=== PATIENT | female | born 1995 | race Caucasian/White ===

== ENCOUNTER 2018-03-15 15:39 | Emergency (ER) | payer BC ==
[~2018-03-15] VITALS: Ht 160 cm; Wt 54.4 kg
[2018-03-15 15:40] VITALS: BP_SYST 114
[2018-03-15] MEDS ORDERED: IBUPROFEN 800 MG TABLET PO ONE (16:00)
[2018-03-15 16:52] VITALS: BP_SYST 121
== END 2018-03-15 16:52 | disposition home or self-care (01) ==
LOC: SED 15:39
DX: S92.352A Displaced fracture of fifth metatarsal bone, left foot, initial encounter for closed fracture (principal); R03.0 Elevated blood-pressure reading, without diagnosis of hypertension; X50.9XXA Other and unspecified overexertion or strenuous movements or postures, initial encounter; Y93.89 Activity, other specified; Y92.89 Other specified places as the place of occurrence of the external cause; Y99.8 Other external cause status
CPT/HCPCS: 99284

== ENCOUNTER 2019-03-10 14:42 | Emergency (ER) | payer BC ==
[~2019-03-10] VITALS: Ht 152.4 cm; Wt 58.1 kg
[2019-03-10 14:49] VITALS: BP_SYST 125
--- NOTE | 2019-03-10 14:50 | NUR ---
Patient to ER bed 5 to gown for evaluation. Side rails up.
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
--- NOTE | 2019-03-10 15:15 | NUR ---
OSCAR King examining patient.
[2019-03-10] MEDS ORDERED: KETAMINE 30 MG/3 ML SYRINGE IVP ONE (16:00)
[2019-03-10] MEDS ORDERED: MIDAZOLAM HCL 5 MG/5 ML VIAL IVP ONE (16:00)
[2019-03-10] MEDS ORDERED: KETOROLAC TROMETHAMINE 30 MG VIAL IVP ONE (16:15)
--- NOTE | 2019-03-10 16:20 | NUR ---
Patient movd to Bed 1. Moderate sedation consent obtained and prep for procedure. Partner of patient Shirin Robertson at bedside.
--- NOTE | 2019-03-10 16:24 | NUR ---
Moderate sedation & right arm open reduction documentation on moderate sedation flow sheet.
[2019-03-10] MEDS ORDERED: SYN50 PO (17:46)
[2019-03-10] MEDS ORDERED: FLEETMO RC (17:46)
[2019-03-10] MEDS ORDERED: VITD2000 PO (17:46)
[2019-03-10] MEDS ORDERED: LISI-209 PO (17:46)
[2019-03-10] MEDS ORDERED: ACET-2165 PO ×2 (17:46)
[2019-03-10] MEDS ORDERED: DONE10TA44 PO (17:46)
[2019-03-10] MEDS ORDERED: CLOP75TA32 PO (17:46)
[2019-03-10] MEDS ORDERED: GABA-531 PO (17:46)
[2019-03-10] MEDS ORDERED: MEMA5TAB PO (17:46)
[2019-03-10] MEDS ORDERED: GLU500 PO (17:46)
[2019-03-10] MEDS ORDERED: CILO100T PO (17:46)
[2019-03-10] MEDS ORDERED: ATOR40TA68 PO (17:46)
[2019-03-10] MEDS ORDERED: SSNOVOLOG SUBCUT (17:46)
[2019-03-10] MEDS ORDERED: DOCU-144 PO (17:46)
[2019-03-10] MEDS ORDERED: FER300L PO (17:46)
[2019-03-10] MEDS ORDERED: MULT-1100 PO (17:46)
[2019-03-10] MEDS ORDERED: INSU100V11 SQ (17:46)
[2019-03-10] MEDS ORDERED: ACET-2634 PO (17:46)
[2019-03-10] MEDS ORDERED: BISA10SU61 RC (17:46)
[2019-03-10] MEDS ORDERED: MOM PO (17:46)
[2019-03-10] MEDS ORDERED: HYDROcodone/ACETAMIN 5-325 MG TAB (NORCO/ VICODIN) PO ONE (18:45)
[2019-03-10] MEDS ORDERED: BACITRACIN 1 GM OINT TP ONE (18:45)
[2019-03-10 18:50] VITALS: BP_SYST 140
--- NOTE | 2019-03-10 18:50 | NUR ---
Patient given written and verbal discharge instructions and verbalizes understanding. ER MD discussed with patient the results and treatment provided. Patient in stable condition. ID arm band removed. IV catheter removed intact and dressing applied, no active bleeding.left arm blister wrapped with Yifan wrap. Rx of Hiram & Motrin given. Patient educated on pain management and to follow up with PMD. Pain Scale 7/10 tolerable for patient. Opportunity for questions provided and answered. Medication side effect fact sheet provided.
== END 2019-03-10 18:50 | disposition home or self-care (01) ==
LOC: SED 14:42
DX: S52.501A Unspecified fracture of the lower end of right radius, initial encounter for closed fracture (principal); S50.12XA Contusion of left forearm, initial encounter; R03.0 Elevated blood-pressure reading, without diagnosis of hypertension; V49.40XA Driver injured in collision with unspecified motor vehicles in traffic accident, initial encounter; Y93.89 Activity, other specified; Y92.89 Other specified places as the place of occurrence of the external cause; Y99.8 Other external cause status
CPT/HCPCS: 25605; 73080; 73100; 73110; 81025; 96374; 99152; 99285; J1885; J2250